=== PATIENT | male | born 1945 | race Caucasian/White ===

== ENCOUNTER 2018-04-21 18:57 | Inpatient (IN) | payer OTHER ==
[~2018-04-21] VITALS: Ht 180.3 cm; Wt 109.0 kg
[2018-04-21] MEDS ORDERED: SODIUM CHLORIDE FLUSH 10ML SYR IVF ONE (19:30)
[2018-04-21 19:37] LABS: MEAN CORPUSCULAR HEMOGLOBIN 29.5 pg (27.5-34.5); MEAN CORPUSCULAR HGB CONC 33.7 g/dL (33.2-36.2); MEAN CORPUSCULAR VOLUME 87.8 fL (81-97); MEAN PLATELET VOLUME 8.4 fL (7.4-10.4); PLATELET COUNT 233 x10^3/uL (130-400); RED BLOOD COUNT 5.21 x10^6/uL (4.38-5.82); RED CELL DISTRIBUTION WIDTH 13.4 % (9.4-14.8)
[2018-04-21] MEDS ORDERED: DIGO250T PO (19:43)
[2018-04-21] MEDS ORDERED: DILT90TA PO (19:44)
[2018-04-21] MEDS ORDERED: IBUP-1223 PO (19:45)
[2018-04-21] MEDS ORDERED: POLY454P3 PO (19:47)
[2018-04-21 19:48] LABS: ALANINE AMINOTRANSFERASE 41 U/L (12-78); ALBUMIN 2.4 g/dL (3.4-5.0); ANION GAP 8 mmol/L (5-15); CALCIUM 8.5 mg/dL (8.5-10.1); CHLORIDE 108 mmol/L (98-107); CREATININE 0.68 mg/dL (0.7-1.3); MD YES
[2018-04-21] MEDS ORDERED: SAXA2.5T PO (19:48)
[2018-04-21] MEDS ORDERED: ASPI-515 PO (19:49)
[2018-04-21] MEDS ORDERED: ASCO500T5 PO (19:49)
[2018-04-21 19:50] LABS: ALKALINE PHOSPHATASE 171 U/L (45-117); TOTAL PROTEIN 6.9 g/dL (6.4-8.2)
[2018-04-21] MEDS ORDERED: CHOL2000 PO (19:51)
[2018-04-21] MEDS ORDERED: CYAN100028 PO (19:55)
[2018-04-21] MEDS ORDERED: CHRO400T6 PO (19:55)
[2018-04-21] MEDS ORDERED: GARL10002 PO (19:56)
[2018-04-21] MEDS ORDERED: MELA1TAB22 PO (19:57)
[2018-04-21] MEDS ORDERED: VITA400C43 PO (19:58)
[2018-04-21] MEDS ORDERED: SODIUM CHLORIDE FLUSH 10ML SYR IVF PRN (20:00)
[2018-04-21 20:09] LABS: <RBC MORPHOLOGY> NORMAL; BAND#(MANUAL) 0.22 x10^3/uL; BANDS%(MANUAL) 1 % (0-7); LYMPH#(MANUAL) 0.22 x10^3/uL (1-3.4); LYMPHS% (MANUAL) 1 % (22-44); MONOS#(MANUAL) 2.16 x10^3/uL (0.3-2.7); MONOS% (MANUAL) 10 % (2-9); SEG#(MANUAL) 19.01 x10^3/uL (1.8-6.8); SEGS% (MANUAL) 88 % (42-75)
[2018-04-21 20:10] LABS: <PLATELET ESTIMATE> ADEQUATE; <PLT MORPHOLOGY> NORMAL PLT MORPH
[2018-04-21] MEDS ORDERED: VITAMIN E 400 UNITS CAPSULE PO PRN (20:30)
[2018-04-21] MEDS ORDERED: GARLIC 1250 MG PO SCH (20:30)
[2018-04-21] MEDS ORDERED: LIDODERM 5% PATCH TD PRN (20:30)
[2018-04-21] MEDS ORDERED: CHOLECALCIFEROL 1,000 UNIT TABLET PO ONE (20:30)
[2018-04-21] MEDS ORDERED: ONDANSETRON ODT 4 MG PO PRN (20:30)
[2018-04-21] MEDS ORDERED: LABETALOL 5MG/ML, 20ML IVPush PRN (20:30)
[2018-04-21 20:31] LABS: MICROSCOPIC INDICATED
[2018-04-21 20:41] LABS: CULTURE INDICATED? NO
[2018-04-21] MEDS ORDERED: CEFTRIAXONE 1,000 MG in SODIUM CHLORIDE 0.9% 50 ML IV SCH (21:00)
[2018-04-21 21:12] VITALS: BP 181/88
[2018-04-21] MEDS: POLYETHYLENE GLYCOL 17 GM PACKET PO SCH (21:24)
[2018-04-21] MEDS: ACETAMINOPHEN 325 MG TABLET PO PRN (21:24)
[2018-04-21] MEDS ORDERED: PHENAZOPYRIDINE 100 MG TABLET PO SCH (21:25)
[2018-04-21] MEDS ORDERED: HYDROcodone/APAP 5/325 TABLET PO PRN (22:00)
[2018-04-21] MEDS: INSULIN REGULAR 100 UNITS/ML, 3ML VIAL SQ-INSULIN SCH (22:14)
[2018-04-21] MEDS: MELATONIN 3 MG TABLET PO SCH (22:14)
[2018-04-21] MEDS: PYRIDOXINE 50MG TABLET PO SCH (22:14)
[2018-04-21 22:19] VITALS: BP 181/88
[2018-04-21] MEDS: CEFTRIAXONE PMX 1GM/50ML 50 ML IV SCH (23:21)
[2018-04-21 23:34] VITALS: BP 163/99
[2018-04-22 02:31] VITALS: BP 153/75
[2018-04-22] MEDS: HYDROcodone/APAP 5/325 TABLET PO PRN ×3 (05:50→19:34)
[2018-04-22 08:52] VITALS: BP 138/76
[2018-04-22] MEDS: CYANOCOBALAMIN 1,000 MCG TABLET PO SCH (09:00)
[2018-04-22] MEDS ORDERED: INSULIN GLARGINE 100 UNITS/ML, PEN SQ-INSULIN SCH (09:00)
[2018-04-22] MEDS: SENNA/DOCUSATE TABLET PO SCH (09:00)
[2018-04-22] MEDS: POLYETHYLENE GLYCOL 17 GM PACKET PO SCH (09:00)
[2018-04-22] MEDS: DIGOXIN 0.25 MG TABLET PO SCH (09:00)
[2018-04-22] MEDS ORDERED: DIGOXIN 0.25 MG/ML, 2ML IVPush SCH (09:00)
[2018-04-22] MEDS ORDERED: DILTIAZEM 90 MG TABLET PO SCH ×2 (09:00→11:00)
[2018-04-22] MEDS: ASCORBIC ACID 500 MG TABLET PO SCH (09:00)
[2018-04-22] MEDS ORDERED: CHROMIUM AMINO ACID CHELATE PO SCH (09:00)
[2018-04-22] MEDS ORDERED: ENALAPRILAT 1.25 MG/ML, 2ML IV PRN (09:30)
[2018-04-22] MEDS: METRONIDAZOLE PMX 500MG/100ML 100 ML IV SCH ×2 (09:31→17:59)
[2018-04-22] MEDS: INSULIN REGULAR 100 UNITS/ML, 3ML VIAL SQ-INSULIN SCH ×4 (09:31→20:54)
[2018-04-22] MEDS: METOPROLOL 1 MG/ML, 5ML IVPush SCH ×4 (09:31→22:59)
[2018-04-22] MEDS: INSULIN GLARGINE 100 UNITS/ML, PEN SQ-INSULIN SCH (09:32)
[2018-04-22] MEDS: CEFTRIAXONE PMX 1GM/50ML 50 ML IV SCH ×2 (10:51→22:59)
[2018-04-22] MEDS: morphine SULFATE 10 MG/ML, 1ML IVPush PRN ×3 (10:52→23:54)
[2018-04-22 11:43] LABS: MEAN CORPUSCULAR HEMOGLOBIN 29.5 pg (27.5-34.5); MEAN CORPUSCULAR HGB CONC 33.9 g/dL (33.2-36.2); MEAN PLATELET VOLUME 8.5 fL (7.4-10.4); PLATELET COUNT 249 x10^3/uL (130-400); RED BLOOD COUNT 4.91 x10^6/uL (4.38-5.82); RED CELL DISTRIBUTION WIDTH 13.2 % (9.4-14.8)
[2018-04-22] MEDS: DILTIAZEM CD 180 MG CAP.ER.24H PO SCH (11:54)
[2018-04-22 11:55] LABS: ALANINE AMINOTRANSFERASE 37 U/L (12-78); ALBUMIN 2.1 g/dL (3.4-5.0); ANION GAP 6 mmol/L (5-15); CALCIUM 8.4 mg/dL (8.5-10.1); CHLORIDE 109 mmol/L (98-107); CREATININE 0.72 mg/dL (0.7-1.3)
[2018-04-22 11:57] LABS: ALKALINE PHOSPHATASE 159 U/L (45-117); BILIRUBIN,TOTAL 1.2 mg/dL (0.2-1.0); TOTAL PROTEIN 6.5 g/dL (6.4-8.2)
[2018-04-22 12:23] LABS: BASOPHILS # (AUTO) 0.05 x10^3/uL (0-0.1); BASOPHILS % (AUTO) 0 % (0-1); EOSINOPHILS % (AUTO) 0 % (1-7); LYMPHOCYTES # (AUTO) 0.76 x10^3/uL (1-3.4); LYMPHOCYTES % (AUTO) 4 % (22-44); MD SCAN; MONOCYTES # (AUTO) 1.73 x10^3/uL (0.2-0.8); MONOCYTES % (AUTO) 8 % (2-9); NEUTROPHILS # (AUTO) 18.39 x10^3/uL (1.8-6.8); NEUTROPHILS % (AUTO) 88 % (42-75)
[2018-04-22 13:53] VITALS: BP 147/77
[2018-04-22] MEDS ORDERED: DILTIAZEM 125 MG in SODIUM CHLORIDE 0.9% 100 ML IV PRN (17:00)
[2018-04-22] MEDS ORDERED: OMNIPAQUE 350 MG/ML, 100ML BOTTLE ONE (17:38)
[2018-04-22 20:49] VITALS: BP 120/69
[2018-04-22] MEDS: PYRIDOXINE 50MG TABLET PO SCH (20:51)
[2018-04-22] MEDS: MELATONIN 3 MG TABLET PO SCH (20:52)
[2018-04-22 22:58] VITALS: BP 123/70
[2018-04-23 00:18] VITALS: BP 142/71
[2018-04-23] MEDS: METRONIDAZOLE PMX 500MG/100ML 100 ML IV SCH ×3 (01:27→16:56)
[2018-04-23 05:16] VITALS: BP 126/72
[2018-04-23 05:16] LABS: MEAN CORPUSCULAR HEMOGLOBIN 29.6 pg (27.5-34.5); MEAN CORPUSCULAR HGB CONC 34.3 g/dL (33.2-36.2); MEAN CORPUSCULAR VOLUME 86.5 fL (81-97); MEAN PLATELET VOLUME 8.4 fL (7.4-10.4); PLATELET COUNT 279 x10^3/uL (130-400); RED BLOOD COUNT 4.72 x10^6/uL (4.38-5.82); RED CELL DISTRIBUTION WIDTH 13.7 % (9.4-14.8)
[2018-04-23] MEDS: METOPROLOL 1 MG/ML, 5ML IVPush SCH (05:17)
[2018-04-23 05:26] LABS: CHLORIDE 107 mmol/L (98-107)
[2018-04-23 05:46] LABS: ALANINE AMINOTRANSFERASE 38 U/L (12-78); ALKALINE PHOSPHATASE 167 U/L (45-117); ANION GAP 10 mmol/L (5-15); CALCIUM 8.7 mg/dL (8.5-10.1); CREATININE 0.79 mg/dL (0.7-1.3); TOTAL PROTEIN 6.4 g/dL (6.4-8.2)
[2018-04-23 06:01] LABS: BASOPHILS # (AUTO) 0.02 x10^3/uL (0-0.1); BASOPHILS % (AUTO) 0 % (0-1); EOSINOPHILS # (AUTO) 0.01 x10^3/uL (0-0.4); EOSINOPHILS % (AUTO) 0 % (1-7); LYMPHOCYTES # (AUTO) 1.06 x10^3/uL (1-3.4); LYMPHOCYTES % (AUTO) 6 % (22-44); MD SCAN; MONOCYTES # (AUTO) 1.98 x10^3/uL (0.2-0.8); MONOCYTES % (AUTO) 11 % (2-9); NEUTROPHILS # (AUTO) 14.81 x10^3/uL (1.8-6.8); NEUTROPHILS % (AUTO) 83 % (42-75)
[2018-04-23] MEDS: morphine SULFATE 10 MG/ML, 1ML IVPush PRN (06:19)
[2018-04-23 07:00] VITALS: BP 145/76
[2018-04-23] MEDS: INSULIN REGULAR 100 UNITS/ML, 3ML VIAL SQ-INSULIN SCH ×4 (07:00→20:12)
[2018-04-23] MEDS ORDERED: morphine SULFATE 10 MG/ML, 1ML IVPush PRN (08:30)
[2018-04-23] MEDS: ASCORBIC ACID 500 MG TABLET PO SCH (09:00)
[2018-04-23] MEDS: POLYETHYLENE GLYCOL 17 GM PACKET PO SCH ×2 (09:00→16:56)
[2018-04-23] MEDS: CYANOCOBALAMIN 1,000 MCG TABLET PO SCH (09:00)
[2018-04-23] MEDS: SENNA/DOCUSATE TABLET PO SCH ×2 (09:00→16:56)
[2018-04-23] MEDS: DIGOXIN 0.25 MG TABLET PO SCH (09:17)
[2018-04-23] MEDS: DILTIAZEM CD 180 MG CAP.ER.24H PO SCH (09:17)
[2018-04-23] MEDS ORDERED: BUPIVACAINE/PF-EPI 0.5% 1:200K ONE (09:37)
[2018-04-23] MEDS ORDERED: FENTANYL PF 100 MCG/2ML ONE ×2 (09:45→11:40)
[2018-04-23] MEDS ORDERED: PROPOFOL 10 MG/ML, 20ML ONE (09:45)
[2018-04-23] MEDS ORDERED: SUCCINYLCHOLINE 20 MG/ML, 10ML ONE (09:45)
[2018-04-23] MEDS ORDERED: MIDAZOLAM 1 MG/ML, 2ML ONE (09:45)
[2018-04-23] MEDS ORDERED: GLYCOPYRROLATE 0.2MG/1ML, 5ML ONE (10:08)
[2018-04-23] MEDS ORDERED: LACTATED RINGERS 1,000 ML ONE (10:08)
[2018-04-23] MEDS ORDERED: NEOSTIGMINE 1 MG/ML, 10ML ONE (10:08)
[2018-04-23] MEDS ORDERED: CEFAZOLIN 1,000 MG ONE (10:08)
[2018-04-23] MEDS ORDERED: ROCURONIUM 10MG/ML,5ML ONE (10:08)
[2018-04-23] MEDS ORDERED: LABETALOL 5MG/ML, 20ML IV PRN (11:30)
[2018-04-23] MEDS ORDERED: MORPHINE SULFATE 4 MG/ML, 1ML IVPush PRN (11:30)
[2018-04-23] MEDS ORDERED: ALBUTEROL SULFATE 2.5 MG/3 ML NPPB PRN (11:30)
[2018-04-23] MEDS ORDERED: OXYcodone 5 MG/5 ML ORAL.SOL UDC PO PRN (11:30)
[2018-04-23] MEDS ORDERED: HYDROmorphone 1 MG/ML, 1ML IV PRN (11:30)
[2018-04-23] MEDS ORDERED: KETOROLAC 30 MG/1 ML IV PRN (11:30)
[2018-04-23] MEDS ORDERED: LORazepam 2 MG/ML, 1ML IVPush PRN (11:30)
[2018-04-23] MEDS ORDERED: ONDANSETRON 2MG/ML, 2ML IV PRN (11:30)
[2018-04-23] MEDS ORDERED: MEPERIDINE/PF 25MG/0.5ML IVPush PRN (11:30)
[2018-04-23] MEDS ORDERED: ACETAMINOPHEN 325 MG TABLET PO PRN (11:30)
[2018-04-23] MEDS ORDERED: MIDAZOLAM 1 MG/ML, 2ML IV PRN (11:30)
[2018-04-23] MEDS ORDERED: hydrALAzine 20 MG/ML, 1ML IV PRN (11:30)
[2018-04-23] MEDS ORDERED: OXYcodone 5 MG/5 ML ORAL.SOL UDC ONE (11:40)
[2018-04-23] MEDS: FENTANYL PF 100 MCG/2ML IV PRN ×2 (11:42→11:49)
[2018-04-23] MEDS ORDERED: MORPHINE SULFATE 4 MG/ML, 1ML ONE (11:57)
[2018-04-23] MEDS: INSULIN GLARGINE 100 UNITS/ML, PEN SQ-INSULIN SCH (12:32)
[2018-04-23] MEDS: CEFTRIAXONE PMX 1GM/50ML 50 ML IV SCH ×2 (12:34→22:57)
[2018-04-23] MEDS: PYRIDOXINE 50MG TABLET PO SCH (20:12)
[2018-04-23 20:38] VITALS: BP 132/75
[2018-04-23] MEDS: MELATONIN 3 MG TABLET PO SCH (22:56)
[2018-04-24 00:42] VITALS: BP 148/78
[2018-04-24] MEDS: FAMOTIDINE 20 MG TABLET PO SCH ×2 (01:06→07:53)
[2018-04-24] MEDS: METRONIDAZOLE PMX 500MG/100ML 100 ML IV SCH ×2 (01:06→10:18)
[2018-04-24 07:18] VITALS: BP 174/90
[2018-04-24] MEDS: POLYETHYLENE GLYCOL 17 GM PACKET PO SCH (07:52)
[2018-04-24] MEDS: INSULIN REGULAR 100 UNITS/ML, 3ML VIAL SQ-INSULIN SCH ×2 (07:52→11:27)
[2018-04-24] MEDS: SENNA/DOCUSATE TABLET PO SCH (07:52)
[2018-04-24] MEDS: ASCORBIC ACID 500 MG TABLET PO SCH (07:53)
[2018-04-24] MEDS: CYANOCOBALAMIN 1,000 MCG TABLET PO SCH (07:53)
[2018-04-24] MEDS: DIGOXIN 0.25 MG TABLET PO SCH (07:53)
[2018-04-24] MEDS: ACETAMINOPHEN 325 MG TABLET PO PRN (07:54)
[2018-04-24] MEDS: DILTIAZEM CD 180 MG CAP.ER.24H PO SCH (07:54)
[2018-04-24] MEDS: INSULIN GLARGINE 100 UNITS/ML, PEN SQ-INSULIN SCH (07:54)
[2018-04-24 09:22] LABS: MEAN CORPUSCULAR HEMOGLOBIN 29.2 pg (27.5-34.5); MEAN CORPUSCULAR HGB CONC 33.6 g/dL (33.2-36.2); MEAN CORPUSCULAR VOLUME 86.8 fL (81-97); MEAN PLATELET VOLUME 7.9 fL (7.4-10.4); PLATELET COUNT 305 x10^3/uL (130-400); RED BLOOD COUNT 4.84 x10^6/uL (4.38-5.82); RED CELL DISTRIBUTION WIDTH 13.3 % (9.4-14.8)
[2018-04-24 09:38] LABS: BASOPHILS # (AUTO) 0.07 x10^3/uL (0-0.1); BASOPHILS % (AUTO) 1 % (0-1); EOSINOPHILS % (AUTO) 1 % (1-7); LYMPHOCYTES # (AUTO) 1.17 x10^3/uL (1-3.4); LYMPHOCYTES % (AUTO) 11 % (22-44); MD SCAN; MONOCYTES # (AUTO) 1.16 x10^3/uL (0.2-0.8); MONOCYTES % (AUTO) 11 % (2-9); NEUTROPHILS # (AUTO) 8.21 x10^3/uL (1.8-6.8); NEUTROPHILS % (AUTO) 77 % (42-75)
[2018-04-24] MEDS ORDERED: TAMSULOSIN 0.4 MG CAP.ER.24H PO ONE (11:00)
[2018-04-24] MEDS: CEFTRIAXONE PMX 1GM/50ML 50 ML IV SCH (11:20)
[2018-04-24 12:33] VITALS: BP 144/67
[2018-04-24] MEDS ORDERED: METR500T PO (14:42)
[2018-04-24] MEDS ORDERED: CEFD300C37 PO (14:42)
[2018-04-24] MEDS ORDERED: TAMS-11 PO (14:42)
== END 2018-04-24 17:07 | disposition home health service (06) | DRG 853 ==
LOC: ED 19:06 → EDIP 20:17 → 4WST 20:58
PROVIDERS: ADMIT Internal Medicine; ATTEND Internal Medicine
PROC: 0FT44ZZ Resection of Gallbladder, Percutaneous Endoscopic Approach (ICD-10-PCS; principal; 2018-04-23 10:00)
DX: A41.9 Sepsis, unspecified organism (principal); E43 Unspecified severe protein-calorie malnutrition; K80.00 Calculus of gallbladder with acute cholecystitis without obstruction; F33.9 Major depressive disorder, recurrent, unspecified; R18.8 Other ascites; I47.1 Supraventricular tachycardia; I10 Essential (primary) hypertension; E78.5 Hyperlipidemia, unspecified; R33.9 Retention of urine, unspecified; E11.51 Type 2 diabetes mellitus with diabetic peripheral angiopathy without gangrene; G47.33 Obstructive sleep apnea (adult) (pediatric); I16.0 Hypertensive urgency; I25.10 Atherosclerotic heart disease of native coronary artery without angina pectoris; Z79.4 Long term (current) use of insulin; E11.65 Type 2 diabetes mellitus with hyperglycemia; Z95.1 Presence of aortocoronary bypass graft; N20.0 Calculus of kidney; Z79.82 Long term (current) use of aspirin; Z79.899 Other long term (current) drug therapy; Z88.8 Allergy status to other drugs, medicaments and biological substances; Z71.3 Dietary counseling and surveillance
CPT/HCPCS: 36415; 99285; J3490; 74177; 76705; 80053; 80162; 81001; 82962; 83690; 83735; 84100; 85025; 88304; 93005; 94660; G0378; J0690; J0696; J1815; J2250; J2704; J2710; J3010; Q9967; J0330; J1160; J2270; J7120

== ENCOUNTER 2018-04-28 10:57 | Emergency (ER) | payer OTHER ==
[~2018-04-28] VITALS: Ht 180.3 cm; Wt 104.0 kg
[~2018-04-28 10:57] MED LIST: ASCO500T5 PO; ASPI-515 PO; CEFD300C37 PO; CHOL2000 PO; CHRO400T6 PO; CYAN100028 PO; DIGO250T PO; DILT90TA PO; GARL10002 PO; IBUP-1223 PO; MELA1TAB22 PO; METR500T PO; POLY454P3 PO; SAXA2.5T PO; TAMS-11 PO; VITA400C43 PO
[2018-04-28] MEDS ORDERED: SODIUM CHLORIDE 0.9% 1,000ML IVBOLUS ONE (12:00)
[2018-04-28] MEDS ORDERED: SODIUM CHLORIDE FLUSH 10ML SYR IVF ONE (12:00)
[2018-04-28 12:19] LABS: MICROSCOPIC AUTO
[2018-04-28 12:21] LABS: CULTURE INDICATED? NO
[2018-04-28 12:37] LABS: MEAN CORPUSCULAR HEMOGLOBIN 29.7 pg (27.5-34.5); MEAN CORPUSCULAR HGB CONC 34.2 g/dL (33.2-36.2); MEAN CORPUSCULAR VOLUME 86.8 fL (81-97); MEAN PLATELET VOLUME 7.5 fL (7.4-10.4); PLATELET COUNT 387 x10^3/uL (130-400); RED BLOOD COUNT 4.71 x10^6/uL (4.38-5.82); RED CELL DISTRIBUTION WIDTH 13.4 % (9.4-14.8)
[2018-04-28 12:38] LABS: CHLORIDE 101 mmol/L (98-107)
[2018-04-28 12:43] LABS: ALANINE AMINOTRANSFERASE 89 U/L (12-78); ALBUMIN 2.3 g/dL (3.4-5.0); ANION GAP 8 mmol/L (5-15); CALCIUM 7.6 mg/dL (8.5-10.1); CREATININE 0.89 mg/dL (0.7-1.3)
[2018-04-28 12:46] LABS: ALKALINE PHOSPHATASE 168 U/L (45-117); BILIRUBIN,TOTAL 0.4 mg/dL (0.2-1.0); TOTAL PROTEIN 6.3 g/dL (6.4-8.2)
[2018-04-28 12:48] LABS: ACETONE, SERUM Negative (Negative)
[2018-04-28 12:54] LABS: BASOPHILS # (AUTO) 0.03 x10^3/uL (0-0.1); BASOPHILS % (AUTO) 0 % (0-1); EOSINOPHILS # (AUTO) 0.16 x10^3/uL (0-0.4); EOSINOPHILS % (AUTO) 2 % (1-7); LYMPHOCYTES # (AUTO) 1.54 x10^3/uL (1-3.4); LYMPHOCYTES % (AUTO) 18 % (22-44); MD SCAN; MONOCYTES # (AUTO) 0.75 x10^3/uL (0.2-0.8); MONOCYTES % (AUTO) 9 % (2-9); NEUTROPHILS # (AUTO) 5.91 x10^3/uL (1.8-6.8); NEUTROPHILS % (AUTO) 71 % (42-75)
[2018-04-28] MEDS ORDERED: INSULIN REGULAR 100 UNITS/ML, 3ML VIAL ONE (13:19)
[2018-04-28] MEDS ORDERED: INSULIN REGULAR 100 UNITS/ML, 3ML VIAL IVPush ONE (13:30)
[2018-04-28 14:44] VITALS: BP 157/86
== END 2018-04-28 15:21 | disposition home or self-care (01) ==
LOC: ED 12:53
DX: R31.29 Other microscopic hematuria (principal); I10 Essential (primary) hypertension; E11.65 Type 2 diabetes mellitus with hyperglycemia; I48.91 Unspecified atrial fibrillation; F32.9 Major depressive disorder, single episode, unspecified; Z90.49 Acquired absence of other specified parts of digestive tract
CPT/HCPCS: 80053; 81001; 82010; 82962; 83605; 85025; 96361; 96374; 99284; J7030